=== PATIENT | female | born 1945 | race Hispanic/Latino ===

== ENCOUNTER → 2025-01-15 | Emergency (ER) | payer OTHER, MEDICAID ==
[~2025-01-15] VITALS: Ht 162.6 cm; Wt 77.1 kg
--- NOTE | 2025-01-15 16:41 | ERN ---
General Chief Complaint: Dizzy/Light Headed Stated Complaint: VERTIGO Time Seen by MD: 16:39 Source: patient History of Present Illness Initial Comments This patient is a 79-year-old female who presented with complaint of vertigo for the past 2 months. Patient states that symptoms usually last for 30 minutes but today they persisted for several hours. It is associated with ringing sensation in right ear. She also has had episodes of nausea. She denies any recent ear infection. Allergies: Coded Allergies: No Known Drug Allergies (Unverified Allergy, Unknown, 01/15/25) Past Medical History Past Medical History: CAD, Hypertension, Hypothyroid Past Surgical History: Other Surgical History Other: HEART CATH Constitutional: (-) chills, (-) diaphoresis, (-) fever, (-) malaise, (-) weakness, (-) other documentation EENTM: (+) other documentation (Ringing sensation in right ear) Respiratory: (-) cough, (-) orthopnea, (-) short of breath, (-) stridor, (-) wheezing, (-) other documentation Cardiovascular: (-) chest pain, (-) edema, (-) palpitations, (-) syncope, (-) dyspnea on exertion, (-) other documentation Gastrointestinal/Abdominal: (+) nausea, (+) vomiting; (-) diarrhea, (-) abdominal pain, (-) abdominal distention, (-) constipation, (-) rectal bleeding, (-) dark stool/melena, (-) other documentation Genitourinary: (-) vaginal discharge, (-) vaginal bleeding, (-) dysuria, (-) frequency, (-) hematuria, (-) pain, (-) other documentation Musculoskeletal: (-) Neck pain, (-) back pain, (-) Flank Pain, (-) joint pain, (-) joint swelling, (-) muscle pain, (-) muscle stiffness, (-) gout, (-) other documentation Skin: (-) laceration, (-) contusion, (-) abrasion, (-) abscess, (-) rash, (-) change in color, (-) change in hair, (-) change in nails, (-) diaphoresis, (-) dryness, (-) other documentation Neuro: (+) vertigo Physical Exam Physical Exam Dictation VITAL SIGNS: Reviewed. GENERAL APPEARANCE: Alert, oriented x3, no acute distress, obese. HEAD AND FACE: Non-traumatic. EYES: PERRL, pink conjunctivas, eyelid no trauma, anterior chamber clear. EARS: Pinnas intact and no signs of trauma or erythema. Ear canals clear and no discharge. TM erythema. NOSE: No discharge, no bleeding. OROPHARYNX: Mouth normal, teeth no caries, tongue pink. Pharynx erythema. Tonsils no exudates, no abscesses noted. Mucous membrane moist. NECK: Supple, non-tender, no thyromegaly, no masses, no JVD, no bruits. BREAST: Deferred. CHEST: No tenderness, no crepitus, no paradoxical movement, no retractions. LUNGS: Clear, well-ventilated, symmetric, no rales, no wheezing, no rhonchi, no stridor, good breath sounds bilaterally. HEART: Regular rate, regular rhythm, no murmur, no gallops. VASCULAR: No peripheral edema. ABDOMEN: Soft, positive bowel sounds, nondistended, no guarding, nontender, no rebound, no masses no hepatomegaly, no splenomegaly, no Agarwal's sign, no hernias. RECTAL: Deferred. GENITAL: Deferred. NEUROLOGICAL: Normal speech, gross motor function intact, gross sensory function intact. MUSCULOSKELETAL: Neck nontender, full range of motion, back nontender, full range of motion. EXTREMITIES: Nontender, full range of motion. SKIN: Color pink, dry, no turgor, no rash, no lacerations, no abrasions, no contusions. LYMPHATICS: Deferred. General Appearance: (+) no apparent distress Orientation: (+) alert, (+) oriented x 3 Ear, Nose, Throat: (+) moist mucous membraine, (+) hearing decreased Neck: (+) normal inspection, (+) supple, (+) full range of motion Respiratory: (+) chest non-tender, (+) lungs clear Heart: (+) regular Vascular: (+) no edema Gastrointestinal: (+) soft, (+) non-tender Extremities: (+) normal range of motion, (+) non-tender, (+) normal inspection Neurologic/Psychiatric: (+) normal speech Skin: (+) normal color Results Laboratory and Microbiology Lab and Micro Result Laboratory Tests Test 01/15/25 16:50 01/15/25 17:49 White Blood Count 5.8 K/uL (4.8-10.8) Red Blood Count 4.28 MIL/uL (4.00-5.50) Hemoglobin 13.6 g/dL (12.0-16.0) Hematocrit 41.5 % (36-48) Mean Corpuscular Volume 97.0 fL (79-99) Mean Corpuscular Hemoglobin 31.8 pg (27.0-33.0) Mean Corpuscular Hemoglobin Concent 32.8 g/dL (32.0-36.0) Red Cell Distribution Width 13.3 % (11.0-15.5) Platelet Count 207 K/uL (130-400) Mean Platelet Volume 10.6 fL (7.5-10.5) H Nucleated Red Blood Cells 0.0 % (0.0-0.19) Sodium Level 135 mmol/L (136-145) L Potassium Level 4.0 mmol/L (3.5-5.1) Chloride Level 98 mmol/L (101-111) L Carbon Dioxide Level 32 mmol/L (21-32) Blood Urea Nitrogen 22 mg/dL (7-18) H Creatinine 1.0 mg/dL (0.5-1.0) Glomerular Filtration Rate Calc 58 mL/min (>90) Random Glucose 192 mg/dL (70-105) H Total Calcium 9.4 mg/dL (8.5-10.1) Troponin I High Sensitivity 10 ng/L (4-50) Urine Color LIGHT-YELLOW (YELLOW) Urine Appearance CLEAR (CLEAR) Urine pH 5.0 (5.0-8.0) Urine Specific [place] 1.014 (1.001-1.031) Urine Protein NEGATIVE mg/dL (NEGATIVE) Urine Glucose (UA) 30 mg/dL (NEGATIVE) H Urine Ketones NEGATIVE mg/dL (NEGATIVE) Urine Occult Blood NEGATIVE (NEGATIVE) Urine Nitrate NEGATIVE (NEGATIVE) Urine Bilirubin NEGATIVE mg/dL (NEGATIVE) Urine Urobilinogen 0.2 mg/dL (0.2-1.0) Urine Leukocyte Esterase NEGATIVE Dio/uL Urine RBC 2-5 /HPF (0-1) H Urine WBC 0-1 /HPF (0-1) Urine Squamous Epithelial Cells RARE /HPF (0-2) Urine Bacteria None /HPF (None Seen) Labs Reviewed?: Yes EKG/XRAY/US/CT/MRI EKG Comment 01/15/2025 4:39 p.m. Rate 59, sinus rhythm NH 203, QT 435, P 27, T 70 ST-elevation negative CT Scan Comment [facility] [address] [place] [address] IMAGING REPORT Signed PATIENT: EVERARDO PAYNE MR#: [id number] : 1945 SEX: F AGE: 79 LOCATION: [facility] ORDER [id number] STATUS: REG ER REPORT#: [id number] SERVICE 162 REASON: Vertigo with tinnitus in right ear. R/O mass lesions/acute process ORDERING PHYSICIAN: NOEMÍ DE GUZMAN MD PROCEDURE: HEAD WO - CT HEAD/BRAIN W/O CONTRAST EXAM: CT Head Without IV contrast. CLINICAL HISTORY: Vertigo with tinnitus in right ear. R/O mass lesions/acute process TECHNIQUE: Axial computed tomography images of the head/brain without intravenous contrast. COMPARISON: None provided. FINDINGS: BRAIN: No evidence of acute hemorrhage. No mass lesion. No CT evidence for acute territorial infarct. No midline shift or extra-axial collections. VENTRICLES: No hydrocephalus. ORBITS: The orbits are unremarkable. SINUSES AND MASTOIDS: The paranasal sinuses and mastoid air cells are clear. BONES: No fracture. SOFT TISSUES: Unremarkable. IMPRESSION: No acute intracranial abnormality. /[place] DICTATED BY: RANCHO GEORGE MD DATE: 01/15/251838 ELECTRONICALLY SIGNED BY: RANCHO GEORGE MD DATE: 01/15/251838 [facility] Differential diagnosis: Vertigo, dizziness, Meniere's disease, BPPV, sinusitis This patient is a 79-year-old female who presented with complaint of vertigo for the past 2 months. Patient states that symptoms usually last for 30 minutes but today they persisted for several hours. It is associated with ringing sensation in right ear. She also has had episodes of nausea. She denies any recent ear infection. On presentation, CBC, BMP, were taken. To rule out any acute cardiac cause, chest x-ray, troponin, EKG were taken. In order to rule out underlying UTI, UA profile was taken. Considering 8 week of vertigo with ringing sensation, CT head without contrast was done to rule out mass lesions versus acute process. On physical exam patient did present with a oropharyngeal erythema nasal congestion as well as bilateral tympanic membrane erythema suggestive of sinusitis. Patient will be discharged with medication for sinusitis I will be referring her to ENT for long-term management. ED Course Orders Procedure Category Date Status Time Chest 1vw RAD 01/15/25 Resulted 16:29 Troponin I High LAB 01/15/25 Complete Sensitivity 16:29 12 Lead Ekg Tracing- EKG 01/15/25 Logged Technical 16:29 Ct Head/Brain W/O CT 01/15/25 Resulted Contrast 16:29 Cbc Without LAB 01/15/25 Complete Differential 16:34 Basic Metabolic Panel LAB 01/15/25 Complete 16:34 Urinalysis Profile LAB 01/15/25 Complete 16:34 Ondansetron 4mg Inj PHA 01/15/25 Complete (Zofran 4mg Inj) 17:00 Meclizine Hcl 25 Mg PHA 01/15/25 Complete (Antivert 25 Mg) 17:00 0.9% Nacl 500ml PHA 01/15/25 Complete Iv.Soln (Ns 500ml 17:30 Current Medications Medications (Trade) Dose Ordered Sig/Deepika Route PRN Reason Start Time Stop Time Status Last Admin Dose Admin Meclizine HCl (ANTIvert 25 mg) 25 mg ONCE ONCE PO 01/15/25 17:00 01/15/25 17:15 DC 01/15/25 18:14 Ondansetron HCl (zoFRAN 4MG INJ) 4 mg ONCE ONCE IVP 01/15/25 17:00 01/15/25 17:15 DC 01/15/25 18:14 Sodium Chloride 500 ml @ 0 mls/hr ONCE ONCE IV 01/15/25 17:30 01/15/25 17:31 DC 01/15/25 18:14 Vital Signs Date Time Temp Pulse Resp B/P (MAP) Pulse Ox O2 Delivery O2 Flow Rate FiO2 01/15/25 17:55 98.8 68 16 165/62 97 Room Air* 0 21 01/15/25 16:26 98.8 82 18 178/82 97 DX & DISP Disposition: Discharge Departure Impression: Primary Impression: Sinusitis Condition: Stable Additional Instructions: FOLLOW-UP WITH PRIMARY CARE PROVIDER IN 1 TO 2 DAYS. TAKE MEDICATIONS DIRECTED HERE IN THE EMERGENCY ROOM. OKAY TO CONTINUE HOME MEDICATIONS UNLESS OTHERWISE DISCUSSED DURING YOUR VISIT IN THE EMERGENCY ROOM TODAY. RETURN TO YOUR NEAREST EMERGENCY ROOM IF SYMPTOMS WORSEN OR IF THERE IS NO IMPROVEMENT. CALL 911 IF YOU NEED IMMEDIATE ASSISTANCE. TAKE TYLENOL [id number] NEEDED AND IF NO CONTRAINDICATIONS ARE PRESENT. INCREASE ORAL HYDRATION. A WOUND CULTURE OR URINE CULTURE WAS ORDERED HERE IN THE EMERGENCY ROOM DEPARTMENT PLEASE FOLLOW-UP WITH PRIMARY CARE PROVIDER AND ADVISE THEM TO GET REPORTS FROM OUR FACILITY. IF YOU HAD ANY MARIO ALBERTO WRAP/SPLINTS THAT WERE APPLIED HERE, PLEASE DO NOT REMOVE THEM UNTIL YOU SEE YOUR PRIMARY CARE OR SPECIALTY. Referrals: Referrals: SELF,REFERRAL (PCP) AARON GRESHAM MD, JAMES T MD Time of Disposition: 18:52 I have examined patient, & reviewed all documents, & agreed W/ the Diagnosis, and Plan ATTESTATION BY PHYSICIAN I have seen and examined the patient. I reviewed the documentation, medical decision making, and treatment plan as noted by the resident provider above. I agree with the findings and plan of care. GARY WISE MD, MUHAMMAD H MD Jan 15, 2025 16:41 GARY WISE MD Jan 15, 2025 18:44
[2025-01-15 17:06] LABS: NUCLEATED RED BLOOD CELLS 0.0 % (0.0-0.19); PLATELET COUNT (AUTO) 207.0 K/uL (130-400); RED BLOOD CELL COUNT(AUTO) 4.28 MIL/uL (4.00-5.50); RED CELL DISTRIBUTION WIDTH 13.3 % (11.0-15.5); WHITE BLOOD COUNT (AUTO) 5.8 K/uL (4.8-10.8)
[2025-01-15 17:15] LABS: CREATININE 1.0 mg/dL (0.5-1.0); GLOMERULAR FILTR. RATE CALC 58.0 mL/min (>90); GLUCOSE,RANDOM 192.0 mg/dL (70-105); SODIUM SERUM 135.0 mmol/L (136-145); UREA NITROGEN, BLOOD 22.0 mg/dL (7-18)
--- NOTE | 2025-01-15 17:39 | HMCIMG ---
EXAM: CT Head Without IV contrast. CLINICAL HISTORY: Vertigo with tinnitus in right ear. R/O mass lesions/acute process TECHNIQUE: Axial computed tomography images of the head/brain without intravenous contrast. COMPARISON: None provided. FINDINGS: BRAIN: No evidence of acute hemorrhage. No mass lesion. No CT evidence for acute territorial infarct. No midline shift or extra-axial collections. VENTRICLES: No hydrocephalus. ORBITS: The orbits are unremarkable. SINUSES AND MASTOIDS: The paranasal sinuses and mastoid air cells are clear. BONES: No fracture. SOFT TISSUES: Unremarkable. IMPRESSION: No acute intracranial abnormality. /[place]
[2025-01-15 18:02] LABS: APPEARANCE,URINE CLEAR (CLEAR); GLUCOSE, URINE (UA) 30 mg/dL (NEGATIVE); LEUKOCYTE ESTERASE ,URINE NEGATIVE Leu/uL (NEGATIVE); NITRATE,URINE NEGATIVE (NEGATIVE); OCCULT BLOOD,URINE NEGATIVE (NEGATIVE)
[2025-01-15 18:04] LABS: ADD UA MICROSCOPIC YES
[2025-01-15 18:06] LABS: SQUAMOUS EPITHELIAL CELL,UR RARE /HPF (0-2)
[2025-01-15] MEDS: 0.9% NACL 500ML IV.SOLN 500 ML IV ONE (18:14)
--- NOTE | 2025-01-15 18:38 | HMCIMG ---
EXAM: CR Chest, 1 View. CLINICAL HISTORY: New onset vertigo with tinnitus. R/O any acute cardiopulmonary process COMPARISON: None provided. FINDINGS: LUNGS: Emphysematous lung changes No active infiltrate PLEURAL SPACES: No pleural effusion or pneumothorax. MEDIASTINUM: Cardiac silhouette prominent BONES: No acute osseous abnormality. IMPRESSION: 1. Emphysematous lung changes 2. Cardiac silhouette prominent 3. No active infiltrate /[place]
[2025-01-15 18:50] VITALS: BP 133/54; PULSE 54; RESP 13; TEMP 98.8; O2SAT 96
--- NOTE | 2025-01-15 18:53 | NUR ---
PT AAOX4 STABLE NO DISTRESS VITALS WNL NO C/O PAIN PT GIVEN INSTRUCTIONS FOR HOME VERBALIZED UNDERSTANDING. IV REMOVED CATHETER INTACT, PT DRIVEN HOME BY NIECE.
--- NOTE | 2025-01-15 21:31 | EKG ---
[facility] Test Date: 2025-01-15 Test Time: 16:39:43 Pat Name: EVERARDO PAYNE Department: ED Room: Gender: F Csr Technician: [id number] : 1945 Requested By: NOEMÍ COCHRAN Order Number: [id number] Reading MD: Stan East Measurements Intervals [place] Rate: 59 P: 27 CA: 203 QRS: -61 QRSD: 114 T: 70 QT: 435 QTc: 432 Interpretive Statements Sinus rhythm Left anterior fascicular block Left ventricular hypertrophy Anterior Q waves, possibly due to LVH ST elevation, consider inferior injury No previous ECG available for comparison Electronically Signed On 01-18-2025 10:32:03 CDT by Stan East Please click the below link to view image of tracing.
== END ==
LOC: EDH 16:21
DX: J32.9 Chronic sinusitis, unspecified (principal); I11.9 Hypertensive heart disease without heart failure; I25.10 Atherosclerotic heart disease of native coronary artery without angina pectoris; E03.9 Hypothyroidism, unspecified
CPT/HCPCS: 99285; 96374; 70450; 71045; 96375; 84484; 80048; 85027; 81001; 36415; 93005; J1100; J7040; J2405